=== PATIENT | female | born 1975 | race African-American/Black ===

== ENCOUNTER 2016-11-02 09:37 | Observation (INO) ==
[2016-11-02 11:58] LABS: MANUAL DIFF NEEDED? NO
[2016-11-02 12:03] LABS: BASO% 0.3 % (0.0-0.8); EOS# 0.27 X1000 (0.0-0.7); EOS% 2.2 % (0.0-10.0); HEMATOCRIT 37.6 % (37.0-47.0); HEMOGLOBIN 11.3 g/dL (12.0-16.0); IMM GRAN# 0.04 X1000 (0.0-0.04); IMM GRAN% 0.3 % (0.0-0.5); LYMPH# 3.34 X1000 (1.2-3.4); LYMPH% 27.1 % (20.5-51.1); MCHC 30.1 g/dL (33-37); MCV 76.6 FL (81-99); MONO# 1.64 X1000 (0.11-0.59); MONO% 13.3 % (1.7-9.3); NEUT% 56.8 % (42.2-75.2); PLT 312 X1000 (130-400); RBC 4.91 XMIL (4.2-5.4)
[2016-11-02 12:14] LABS: BILIRUBIN URINE NEGATIVE (NEGATIVE); BLOOD URINE TRACE (NEGATIVE); CLARITY CLEAR (CLEAR); COLOR YELLOW; GLUCOSE URINE NEGATIVE (NEGATIVE); LEUKOCYTES URINE TRACE (NEGATIVE); NITRITE URINE NEGATIVE (NEGATIVE); PROTEIN URINE NEGATIVE (NEGATIVE); UROBILINOGEN URINE 4+(12 mg/dL)
--- NOTE | 2016-11-02 12:16 | EKG Report ---
Test Performed on : 11/02/2016 12:09:53 PM Test Reason : dizziness Blood Pressure : / mmHG Vent. Rate : 098 BPM Atrial Rate : 098 BPM P-R Int : 104 ms QRS Dur : 082 ms QT Int : 370 ms P-R-T Axes : 026 051 029 degrees QTc Int : 472 ms Sinus rhythm. with short [place] Nonspecific T wave abnormality Abnormal ECG When compared with ECG of 17-AUG-2016 16:25, Nonspecific T wave abnormality now evident in Anterior leads Unconfirmed Result
[2016-11-02 12:17] LABS: AGAP 11; ALKALINE PHOSPHATASE 83 U/L (32-104); BUN 7 mg/dL (8-22); CALCIUM 9.2 mg/dL (8.8-10.2); CHLORIDE 98 mmol/L (98-107); COSMO 270; GOT 55 U/L (10-30); GPT 26 U/L (10-36); POTASSIUM 2.9 mmol/L (3.5-5.1); SODIUM 136 mmol/L (136-145); TCO2 28 mmol/L (25-35); TOTAL PROTEIN 8.1 g/dL (6.3-8.3)
[2016-11-02 12:18] LABS: URINE EPITHELIAL CELLS >10 /HPF (<10); URINE RBC <10 /HPF (<10); URINE WBC <10 /HPF (<10)
[2016-11-02 12:19] LABS: URINE CULTURE PL NEEDED? YES; URINE SOURCE CLEAN CATCH
[2016-11-02] MEDS ORDERED: KLOR-CON PO ONE (12:56)
[2016-11-02] MEDS ORDERED: TORADOL IM ONE (13:02)
[2016-11-02 14:14] LABS: CK INDEX 0.1 (0.0-2.5); CK-MB 1.67 ng/mL (0.0-5.0)
[2016-11-02] MEDS ORDERED: NS 1,000 ML IV ONE ×2 (14:39→15:52)
--- NOTE | 2016-11-02 15:19 | Diag Imaging Result Doc PS360 ---
CT HEAD W/O CONTRAST - 11/02/2016 INDICATION: AHMADI x 3 days, right side TECHNIQUE: A CT dose reduction protocol was used. COMPARISON: None FINDINGS: There are basal ganglia calcifications bilaterally which is a normal variant. The ventricles and sulci are normal in size and contour. No intracranial mass or hemorrhage. The skull is intact. The sinuses mastoids and middle ears are clear. IMPRESSION: Negative exam. Electronically signed by Alexandre Mccormick 11/02/2016 3:17 PM
--- NOTE | 2016-11-02 15:55 | PROVIDER DOCUMENTATION ---
This chart was entered by Bulmaro Mustafa Scribe, acting as scribe for Jose A Godinez PA. HPI-Headache - General Chief Complaint: Headache Stated Complaint: HEADACHE Time Seen by Provider: 11/02/16 11:27 Source: patient Allergies/Adverse Reactions: Patient Allergies Allergy/AdvReac Type Severity Reaction Status Date / Time Penicillins Allergy Mild HIVES Verified 11/09/14 18:09 Home Medications: Home Medication List Medication Instructions Recorded Confirmed Last Taken Type Alprazolam [Xanax] 1 mg PO TID 02/25/12 11/02/16 11/01/16 History Hydrocodone/Acetaminophen [[place] 1 tab PO BID PRN PRN 11/09/14 11/02/16 18:11 History 10-325 Tablet] Lisinopril/Hydrochlorothiazide 1 each PO DAILY 11/02/16 11/02/16 11/02/16 History [Lisinopril-Hctz 20-25 mg Tab] Tizanidine [Zanaflex] 4 mg PO BID PRN 11/02/16 11/02/16 Unknown History - History of Present Illness-Headache Nature of Presenting Problem: patient is a 41 yo F that presents with headache and anxiety since being started on Lisinopril 1 to 2 weeks ago. reports pain all over and her Fibromyalgia acting up. no n/v/, fever/chills Headache Location: reports: global Quality of Pain: reports: aching, throbbing Severity: reports: mild, moderate Onset/Duration: reports: gradual, other (1 to 2 weeks) Timing: reports: still present, constant Headache Context: reports: nothing Headache History: reports: chronic headaches Headache severity at the maximum: mild Headache Exacerbated by:: reports: nothing Modifying Factors: improves with: nothing Associated Symptoms: reports: headache. denies: fever/chills, insomnia, loss of consciousness, nausea, vomiting, weakness Similar Symptoms Previously?: No Recently seen or treated by another doctor?: Yes Review of Systems - Adult - REVIEW OF SYSTEMS - ADULT Constitutional: reports: no symptoms reported Eyes: reports: no symptoms reported Ears, Nose, Mouth & Throat: denies: ear pain, sinus problem, throat pain Cardiovascular: reports: no symptoms reported Respiratory: reports: no symptoms reported Gastrointestinal: denies: abdominal pain, nausea, vomiting Genitourinary: reports: no symptoms reported Musculoskeletal: reports: muscle aches. denies: back pain, neck pain Integumentary: reports: no symptoms reported Neurological: reports: headache/migraines. denies: dizziness/vertigo Psychiatric: reports: no symptoms reported Endocrine: reports: no symptoms reported Hematologic/Lymphatic: reports: no symptoms reported Allergic/Immunologic: reports: no symptoms reported All Other Systems: Reviewed and Negative Past History - Adult - PAST MEDICAL HISTORY-ADULT Review of Records: reports: Old Records Reviewed, Nursing Assessment Review, Medications Reviewed Cardiovascular: reports: HTN Respiratory: reports: asthma, lung disease (sarcoidsis) Musculoskeletal: reports: chronic pain, fibromyalgia Psychiatric: reports: anxiety - PRIOR SURGERIES/PROCEDURES Surgical/Procedure History: reports: - IMMUNIZATION STATUS Childhood Immunizations: See Nurse Assessment Flu Vaccine: See Nurse Assessment - FAMILY HISTORY Family History: reviewed, not pertinent - SOCIAL HISTORY Smoking: quit greater than 1 year, cigarettes Alcohol Use Frequency: occasionally Living Situation: family Physical Exam- Neurological - Physical Exam-Neuro Initial Vital Signs Reviewed: Yes General Appearance: alert, mild distress, anxious Eye Exam: bilateral eye: normal inspection, PERRL, EOMI HENMT: normocephalic/atraumatic, moist mucous membranes, normal ENT inspection, pharynx normal Head Injury: no evidence of injury. negative: ecchymosis, raccoon eyes Neck: full range of motion, normal inspection Respiratory: chest non-tender, lungs clear, normal breath sounds, no respiratory distress, no accessory muscle use. negative: crackles, rales, rhonchi, stridor, wheezing Cardiovascular: normal peripheral pulses, no edema, no murmur, tachycardia Abdominal Exam: normal bowel sounds, non tender, soft. negative: distended, guarding, rigid, rebound, tenderness Peripheral Pulses: radial (R): 2+, radial (L): 2+, dorsalis-pedis (R): 2+, dorsalis-pedis (L): 2+ Extremity: normal range of motion, normal inspection, no pedal edema manufacturing specialist Exam: normal hearing, normal speech, PERRL. negative: facial droop, facial paresthesias, facial weakness, gaze palsy Motor/Sensory: no motor deficit, no sensory deficit Neurologic: manufacturing specialist II-XII nml as tested, no motor/sensory deficits Integumentary: normal color, normal turgor, warm/dry Psych/Mental Status: normal mood/affect, normal thought content, normal thought process, oriented x 3 - Glascow Coma Scale Best Eye Response: (4) open spontaneously Best Verbal Response: (5) oriented Best Motor Response: (6) obeys commands Total Glascow Score: 15 Progress - PLAN OF CARE/RESULTS Progress/Plan/Lab Results: Vital Signs - 8 hr 11/02/16 10:00 11/02/16 13:10 11/02/16 14:23 Temperature 98 F Pulse Rate 110 H 92 H Respiratory Rate 18 18 Blood Pressure 167/92 142/89 143/93 O2 Sat by Pulse Oximetry 99 98 Laboratory Results - last 24 hr 11/02/16 11/02/16 11/02/16 11:52 11:52 11:54 WBC 12.32 H RBC 4.91 Hgb 11.3 L Hct 37.6 MCV 76.6 L MCH 23.0 L MCHC 30.1 L RDW Std Deviation 16.9 H Plt Count 312 MPV 10.0 Immature Gran % (Auto) 0.3 Neut % (Auto) 56.8 Lymph % (Auto) 27.1 [place] % (Auto) 13.3 H Eos % (Auto) 2.2 Baso % (Auto) 0.3 Immature Gran # (Auto) 0.04 Neut # (Auto) 6.99 H Lymph # (Auto) 3.34 [place] # (Auto) 1.64 H Eos # (Auto) 0.27 Baso # (Auto) 0.04 Sodium 136 Potassium 2.9 L Chloride 98 Carbon Dioxide 28 Anion Gap 11 BUN 7 L Creatinine 0.8 Estimated GFR/1.73 m2 > 60 BUN/Creatinine Ratio 9 Glucose 94 Calculated Osmolality 270 Calcium 9.2 Total Bilirubin 0.70 AST 55 H ALT 26 Alkaline Phosphatase 83 Creatine Kinase Creatine Kinase Index CK-MB (CK-2) Troponin T Total Protein 8.1 Albumin 4.0 Globulin 4.0 Albumin/Globulin Ratio 1.0 Urine Source CLEAN CATCH Urine Color YELLOW Urine Clarity CLEAR Urine pH 7.0 Ur Specific [place] 1.010 Urine Protein NEGATIVE Urine Ketones NEGATIVE Urine Blood TRACE Urine Nitrite NEGATIVE Urine Bilirubin NEGATIVE Urine Urobilinogen 4+(12 mg/dL) Urine Microscopic RBC <10 Urine WBC TRACE A Urine Microscopic WBC <10 Ur Epithelial Cells >10 A Urine Bacteria 1+ Urine Glucose NEGATIVE Urine Test 11/02/16 11/02/16 11/02/16 11:54 13:10 13:10 WBC RBC Hgb Hct MCV MCH MCHC RDW Std Deviation Plt Count MPV Immature Gran % (Auto) Neut % (Auto) Lymph % (Auto) [place] % (Auto) Eos % (Auto) Baso % (Auto) Immature Gran # (Auto) Neut # (Auto) Lymph # (Auto) [place] # (Auto) Eos # (Auto) Baso # (Auto) Sodium Potassium Chloride Carbon Dioxide Anion Gap BUN Creatinine Estimated GFR/1.73 m2 BUN/Creatinine Ratio Glucose Calculated Osmolality Calcium Total Bilirubin AST ALT Alkaline Phosphatase Creatine Kinase 2668 H Creatine Kinase Index 0.1 CK-MB (CK-2) 1.67 Troponin T < 0.010 Total Protein Albumin Globulin Albumin/Globulin Ratio Urine Source Urine Color Urine Clarity Urine pH Ur Specific [place] Urine Protein Urine Ketones Urine Blood Urine Nitrite Urine Bilirubin Urine Urobilinogen Urine Microscopic RBC Urine WBC Urine Microscopic WBC Ur Epithelial Cells Urine Bacteria Urine Glucose Urine Test NEGATIVE Orders Category Date Time Status Admit - [facility] Routine AdmDCTranf 11/02/16 15:52 Ordered Saline Loc NOW Care 11/02/16 14:[address] HEAD W/O CONTRAST [CT] Stat Exams 11/02/16 14:39 Completed CBC WITH ELECTRONIC DIFF [HEME] Stat Lab 11/02/16 11:52 Completed CK PROFILE [SP CHEM] Stat Lab 11/02/16 13:10 Completed COMPREHENSIVE METABOLIC PANEL [CHEM] Stat Lab 11/02/16 11:52 Completed TEST-URINE [PREG] Stat Lab 11/02/16 11:54 Completed TROPONIN T Stat Lab 11/02/16 13:10 Completed TSH Stat Lab 11/02/16 11:52 Received [facility] NIMS W/REFLEX CULT PL [URINALYSIS] Stat Lab 11/02/16 11:54 Completed URINE CULTURE [RM] Routine Lab 11/02/16 12:19 Ordered 0.9% Sodium Chloride Inj [Ns] 1,000 ml Med 11/02/16 15:52 Ordered IV 150 mls/hr 0.9% Sodium Chloride Inj [Ns] 1,000 ml Med 11/02/16 14:39 Discontinued IV 999 mls/hr Ketorolac [Toradol] Med 11/02/16 13:02 Discontinued 60 mg IM NOW ONE Potassium Chloride E.r. [Klor-Con] Med 11/02/16 12:56 Discontinued 60 meq PO NOW ONE EKG [EKG] Stat Ther 11/02/16 11:41 Draft Result Diagrams: 11/02/16 11:52 11/02/16 11:52 - REASSESSMENT Reassessment #1 Time Reassessed: 14:40 (Dr. Cantu at bedside for evaluation. Suspects medication reaction, dehydration. Recommends fluid, Head CT and admission to hospitalist for rehydration and trending of CK, hypokalemia. ) - EKG 1 Time of EKG reading by physician:: 12:09 EKG Read and Signed by:: Marciano Cantu EKG Interpretation (*Must complete 3 of following elements*): Abnormal Rate: 98 Rhythm: SRnwith short NC Osteen: normal QRS: normal NC Interval: normal ST Wave: non-specific ST changes - CONSULTS/PCP/HOSPITALIST Notification #1 *Consult/PCP/Hospitalist*: Dr. Aldana, Hospitalist Time Discussed: 15:53 (Hypokalemia, Elevated CK and medication rxn. Recommends NS at 150 /hr) Consult Disposition: Admit Departure - Departure Date of Disposition Decision: 11/02/16 Time of Disposition Decision: 15:53 DIAGNOSIS: Hypokalemia, Elevated CK Medication reaction Qualifiers: Encounter type: initial encounter Qualified Code(s): T88.7XXA - Unspecified adverse effect of drug or medicament, initial encounter Headache Qualifiers: Headache type: unspecified Headache chronicity pattern: acute headache Intractability: not intractable Qualified Code(s): R51 - Headache Disposition: ADMITTED INPATIENT 09 Certified Medical Emergency: Emergent Condition: Stable Referrals and Follow-Ups: Ag Tinoco MD [Primary Care Provider] - Discharge Education: Migraine Headache, [id number] - Critical Care Note This patient required my direct & personal management of CC.: No Attestation - Physician/ HEIDY Attestation Patient care was provided by Advanced Practice Provider:: Yes Advanced Practice Provider:: Jose A Godinez Advanced Practice Provider documentation review:: The Mid-level provider documentation, treatment plan and medical decision making was reviewed by the physician who agrees with all treatment and medical decision making by the P. The physician spent face to face time with patient:: Yes Advanced Practice Provider documentation review:: Supervising physician onsite and consulted in the evaluation and care of this patient. The physician did have a face to face encounter with the patient. This chart was documented by the indicated scribe, (Bulmaro Mustafa, Kimberly) and accurately reflects the services I performed and decisions made by me, Jose A Godinez PA, as attested by the provider's signature.
[2016-11-02] MEDS ORDERED: XANAX PO PRN (18:19)
[2016-11-02] MEDS ORDERED: NS 1,000 ML IV SCH (18:19)
[2016-11-02] MEDS ORDERED: ZOFRAN IV PRN (18:21)
[2016-11-02] MEDS: TORADOL IV SCH ×2 (18:38→23:38)
[2016-11-02] MEDS: TYLENOL PO PRN (18:38)
[2016-11-02] MEDS: APRESOLINE PO SCH (20:31)
[2016-11-02] MEDS: NORCO-10 PO PRN (22:29)
[2016-11-03] MEDS: TYLENOL PO PRN (03:20)
[2016-11-03] MEDS: TORADOL IV SCH ×2 (06:20→13:11)
[2016-11-03 06:44] LABS: AGAP 8; ALBUMIN 3.2 g/dL (3.5-5.0); ALKALINE PHOSPHATASE 64 U/L (32-104); BUN 9 mg/dL (8-22); CALCIUM 8.1 mg/dL (8.8-10.2); CHLORIDE 103 mmol/L (98-107); COSMO 272; GOT 40 U/L (10-30); GPT 21 U/L (10-36); MAGNESIUM 1.9 mg/dL (1.5-2.7); POTASSIUM 3.6 mmol/L (3.5-5.1); SODIUM 137 mmol/L (136-145); TCO2 26 mmol/L (25-35); TOTAL PROTEIN 6.3 g/dL (6.3-8.3)
[2016-11-03 06:50] LABS: HEMATOCRIT 31.7 % (37.0-47.0); HEMOGLOBIN 9.2 g/dL (12.0-16.0); MCH 22.6 PG (27-31); MCV 77.9 FL (81-99); MPV 10.5 FL (7.4-10.4); RBC 4.07 XMIL (4.2-5.4)
[2016-11-03 06:54] LABS: CK INDEX 0.1 (0.0-2.5); CK-MB 1.33 ng/mL (0.0-5.0)
--- NOTE | 2016-11-03 08:14 | HISTORY AND PHYSICAL ---
ADDENDUM REPORT Patient is seen and examined by me. Full notes discussed with and dictated by nurse practitioner. Patient seen. She has been having headaches, she states since starting lisinopril HCT, although her notes that she was having headaches and feeling bad before. In fact, she has also not been eating or drinking well for the past 2 weeks, and has felt lightheaded and dizzy. PHYSICAL EXAM: GENERAL: She is awake, alert. She is in no distress. His speech is regular. Memory is intact. NECK: Supple. CV: Regular rate. CHEST: Clear. PLAN: She is noted to have an elevated CPK and uncertain etiology. Certainly can be starvation ketosis. Her kidney function is normal. She does have sarcoidosis which may be contributing. We will continue to follow, place her on IV fluids. Recheck in the a.m. Further orders as needed. cc: Shawn Aldana MD
[2016-11-03] MEDS: APRESOLINE PO SCH (08:39)
[2016-11-03] MEDS: NORCO-10 PO PRN (11:12)
[2016-11-03 11:21] VITALS: BP 110/56
--- NOTE | 2016-11-04 08:03 | HISTORY AND PHYSICAL ---
CHIEF COMPLAINT: Headache. HISTORY OF PRESENT ILLNESS: This is a 41-year-old female, with a history of fibromyalgia, sarcoidosis, asthma, hypertension and chronic pain, who presented to the emergency room complaining of chronic headaches over the past year or 2, but this episode began about 2 weeks ago with a throbbing aching headache. It was kind of global. When it started, it was like a 1/10 to 2/10. It has gradually increased over the last 1 to 2 weeks, being a 10/10 on arrival to the emergency room. CT of the head revealed no acute processes. She was noted to have a CPK that was 2668. She is on no statins. She has had no medications,with the exception of lisinopril/hydrochlorothiazide, although she does state that during this time of the headache she has had very little p.o. intake. She does have a potassium of 2.9. PAST MEDICAL HISTORY: Chronic headaches, asthma, hypertension, chronic back pain, lung sarcoidosis, fibromyalgia. PAST SURGICAL HISTORY: . SOCIAL HISTORY: She denies alcohol, tobacco, or illicit drug use. She does drink socially occasionally. ALLERGIES: Penicillin, which causes hives. HOME MEDICATIONS: Zanaflex 4 mg p.o. b.i.d., [place] 10/325 as directed, lisinopril/hydrochlorothiazide 20/25 daily, Xanax 1 mg p.o. t.i.d. REVIEW OF SYSTEMS: A 14-point review of systems is discussed with patient, with pertinent positives stated in HPI. She denies chest pain, palpitations, dizziness, syncope, any PND, orthopnea, productive cough, fever, chills, nausea, vomiting, diarrhea, constipation, black or bloody vomitus, black or bloody stools. PHYSICAL EXAMINATION: GENERAL: This is a 41-year-old female who is sitting in the bed, in mild distress due to headache. VITAL SIGNS: Blood pressure 116/65, with a heart rate of 76, respirations are 18, temperature is 98.1 degrees, with O2 saturations of 98% to 100% on room air. HEENT: Head is normocephalic, atraumatic. Pupils equal, round, react to light. EOMs are intact. Sclerae anicteric. Mucous membranes are moist. NECK: Supple. Trachea midline. CARDIOVASCULAR: Regular rate and rhythm. No rubs, murmurs, or gallops. S1 and S2 appreciated. PULMONARY: Breath sounds are clear, with no increased work of breathing noted. The chest does rise and fall symmetrically to respiration. GASTROINTESTINAL: Abdomen is soft, nontender and nondistended, with bowel sounds in all 4 quadrants. BACK: No CVAT. No spine tenderness. MUSCULOSKELETAL: Good range of motion of joints. EXTREMITIES: No clubbing, cyanosis, or edema. Calves are nontender. Pulses are palpable x4. NEUROLOGIC: She is alert and oriented x3. She has no facial droop. No tongue or uvula deviation. Forehead is spared. Equal nasal flaring. Equal shoulder shrug. No plantar drift. 5/5 muscle strength x4. Aaehaf-uf-wghm is 3/3. DIAGNOSTICS: WBC is 12.3, with a hemoglobin 11.3, hematocrit 37.6 and platelets of 312,000. Sodium is 136, potassium 2.9, BUN 7, creatinine 0.8, with a glucose of 94. CPK is 2668, with a troponin less than 0.010. Urinalysis is essentially negative. Urine culture is pending. CT of the head revealed no acute processes. ASSESSMENT: 1. Chronic headache with acute increase in pain. 2. Hypokalemia. 3. Leukocytosis. 4. Elevated CPK. 5. Sarcoidosis. 6. Anxiety. PLAN: She will be admitted to the hospital. We will replete her potassium, and we will trend electrolytes and replete as appropriate. Urine culture has been obtained. She is afebrile, shares not source that she can name of infection, so we will repeat a CBC in the morning. Wait on urine culture, and we will not start antibiotics until a source is found. We will identify and continue her home medications as appropriate. Of course, we will discontinue her lisinopril/hydrochlorothiazide and start hydralazine in its place. We will continue with IV hydration. Further treatment as needed. Dictated by JAY Hernandez for Shawn Aldana MD cc: JAY Hernandez MD
--- NOTE | 2016-11-04 13:53 | DISCHARGE SUMMARY ---
ADMISSION DATE: 11/02/2016 DISCHARGE DATE: 11/03/2016 DISCHARGE DIAGNOSES: 1. Headache resolved. 2. Generalized weakness, resolved. 3. Nausea and vomiting, resolved. 4. Rhabdomyolysis improved. CPK was 2600 on discharge. It was 1500 the morning of discharge before receiving another liter of fluid. 5. Hypertension improved on hydralazine. 6. Sarcoidosis. CONSULTATIONS: None. PROCEDURES: None. HOSPITAL COURSE: Patient was admitted to the hospital and treated in usual fashion. Her hydrochlorothiazide was stopped secondary to dehydration and volume depletion. She had not been eating or drinking well at home. She was given IV fluids. Placed on hydralazine which she notes that she tolerated well and was keeping her blood pressure in the 120-130 systolic at 10 mg twice a day. DISPOSITION: Discussed with patient that will change her blood pressure medication to hydralazine. We will continue to follow. She will follow up outpatient with Dr. Tinoco. Further orders as needed. TIME SPENT: Thirty-five minutes was spent in total care. cc: Shawn Aldana MD
--- NOTE | 2016-11-04 20:40 | DISCHARGE SUMMARY ---
ADMISSION DATE: 11/02/2016 DISCHARGE DATE: 11/03/2016 DIAGNOSES: 1. Headaches. 2. Sarcoidosis. 3. Hypertension. 4. Hypokalemia. 5. Fibromyalgia. 6. Anxiety. DIAGNOSTICS: 11/02/2016: CT of the head revealed a negative exam. Basal ganglia calcifications bilaterally are normal variant. Ventricles and sulci are normal in size and contour. No intracranial mass or hemorrhage. Sinuses, mastoids and middle ears are clear. Microbiology, urine culture revealed no growth. HOSPITAL COURSE: Ms. Arellano presented to the hospital complaining of headaches and dizziness. She stated that this started a few weeks ago. She had started hydrochlorothiazide and lisinopril about 2 weeks ago and she at first suspected this had something to do with her headaches. Then after discussing with her they realized the headaches started quite sometime before taking the medication. As stated before, CT of the head was negative. She did have a slight headache while in the hospital. She took it looks like Lortab about every 12 hours and that seemed to take care of the headache. Blood pressures were in the 140-160 over 80s-90s. Her lisinopril and hydrochlorothiazide were discontinued and she was placed on Apresoline. We treated her electrolytes and repleted as appropriate. DISCHARGE PHYSICAL EXAMINATION: Cardiovascular: Regular rate and rhythm. S1, S2 appreciated. Pulmonary: Breath sounds are clear. No increased work of breathing noted. Gastrointestinal: Abdomen soft, nontender, nondistended with bowel sounds in all 4 quadrants. Back: No CVAT. No spine tenderness. Extremities: No clubbing, cyanosis, or edema. Calves are nontender. Pulses are palpable x4. Neurologic: She is alert and oriented x3. Cranial nerves 2-12 grossly intact. Vital Signs: Blood pressure is 110/56 with a heart rate of 86, respirations are 18, temperature is 97.6 degrees oral with room air saturation 97%. FOLLOW-UP: She needs to follow up with her primary care physician in the next 1-2 weeks. At that time, further evaluation can be discussed. She did have a CPK of 2668. After IV hydration it did decline to 1554. She does need to have a CPK drawn on her visit with Dr. Tinoco. Dictated by JAY Hernandez for Shawn Aladna MD cc: JAY Hernandez MD
== END 2016-11-03 15:15 | disposition home or self-care (01) ==
LOC: P.ED 09:37 → P.MEDSURG 09:37
PROVIDERS: ATTEND Family Medicine